=== PATIENT | male | born 1960 | race American Indian/Alaskan Native ===

== ENCOUNTER 2017-09-16 10:27 | Emergency (ER) | payer OTHER ==
[2017-09-16 10:38] VITALS: BP 117/71
--- NOTE | 2017-09-16 12:34 | Emergency Department Report ---
ED General Adult HPI - General Chief complaint: Skin Rash Stated complaint: RASH Time Seen by Provider: 09/16/17 12:11 Source: patient Mode of arrival: Ambulatory Limitations: No Limitations - History of Present Illness Initial comments: Patient complains of a rash that was on his back that started about a month ago. Patient now notices that the rashes on his right inner thigh. He states that the rash is not painful but it does itch. Patient denies fever, rash on his hand or sole of his feet. No other associated symptoms. - Related Data Previous Rx's Medication Instructions Recorded Last Taken Type Triamcinolone 0.1% [Kenalog 0.1% 1 applic TP BID #1 tube 09/16/17 Unknown Rx CREAM] Allergies Allergy/AdvReac Type Severity Reaction Status Date / Time No Known Allergies Allergy Unverified 09/16/17 10:38 ED Review of Systems ROS: Stated complaint: RASH Other details as noted in HPI Comment: All other systems reviewed and negative Constitutional: denies: chills, fever Eyes: denies: eye pain, eye discharge, vision change ENT: denies: ear pain, throat pain Respiratory: denies: cough, shortness of breath, wheezing Cardiovascular: denies: chest pain, palpitations Endocrine: no symptoms reported Gastrointestinal: denies: abdominal pain, nausea, diarrhea Genitourinary: denies: urgency, dysuria Musculoskeletal: denies: back pain, joint swelling, arthralgia Skin: denies: rash, lesions Neurological: denies: headache, weakness, paresthesias Psychiatric: denies: anxiety, depression Hematological/Lymphatic: denies: easy bleeding, easy bruising ED Past Medical Hx - Past Medical History Previous Medical History?: Yes 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) Additional medical history: TREMORS - Surgical History Past Surgical History?: No - Social History Smoking Status: Current Every Day Smoker Substance Use Type: Alcohol - Medications Home Medications: Home Medications Medication Instructions Recorded Confirmed Last Taken Type Triamcinolone 0.1% [Kenalog 0.1% 1 applic TP BID #1 tube 09/16/17 Unknown Rx CREAM] ED Physical Exam - General Limitations: No Limitations General appearance: alert, in no apparent distress - Head Head exam: Present: atraumatic, normocephalic - Eye Eye exam: Present: normal appearance - ENT ENT exam: Present: mucous membranes moist - Neck Neck exam: Present: normal inspection - Respiratory Respiratory exam: Present: normal lung sounds bilaterally. Absent: respiratory distress - Cardiovascular Cardiovascular Exam: Present: regular rate, normal rhythm. Absent: systolic murmur, diastolic murmur, rubs, gallop - GI/Abdominal GI/Abdominal exam: Present: soft, normal bowel sounds - Rectal Rectal exam: Present: deferred - Extremities Exam Extremities exam: Present: normal inspection - Back Exam Back exam: Present: normal inspection - Neurological Exam Neurological exam: Present: alert, oriented X3 - Psychiatric Psychiatric exam: Present: normal affect, normal mood - Skin Skin exam: Present: warm, dry, other (patient has a plaque-like rash to his back as well as to his right inner thigh). Absent: rash ED Course Vital Signs 09/16/17 10:34 Temperature 97.9 F Pulse Rate 69 Respiratory 18 Rate Blood Pressure 117/71 O2 Sat by Pulse 99 Oximetry Critical care attestation.: If time is entered above; I have spent that time in minutes in the direct care of this critically ill patient, excluding procedure time. ED Disposition Clinical Impression: Rash Disposition: DC-01 TO HOME OR SELFCARE Is pt being admited?: No Does the pt Need Aspirin: No Condition: Stable Instructions: Acute Rash (ED) Prescriptions: Triamcinolone 0.1% [Kenalog 0.1% CREAM] 1 applic TP BID #1 tube Referrals: PRIMARY CARE, [Primary Care Provider] - 3-5 Days BIENVENIDO ARANA MD [Staff Physician] - 3-5 Days Time of Disposition: 12:33
== END 2017-09-16 12:42 | disposition home or self-care (01) ==
LOC: ED 10:27
DX: R21 Rash and other nonspecific skin eruption (principal); F17.200 Nicotine dependence, unspecified, uncomplicated
CPT/HCPCS: 99282